=== PATIENT | male | born 1945 | race Native Hawaiian/Other Pacific Islander ===

== ENCOUNTER 2016-06-14 06:25 | Day surgery (SDC) | payer MEDICARE, MEDICAID ==
[2016-05-20 13:49] VITALS: BMI 21.0
--- NOTE | 2016-06-11 15:43 | HP ---
REASON FOR ADMISSION: Left heart catheterization, possible angioplasty, abnormal stress test. BRIEF CLINICAL HISTORY: This is a 70-year-old male with a past medical history of hypertension, hype rlipidemia, active tobacco abuse, having chest pain. The patient underwent a stress test that shows abnormal stress test, so patient is scheduled for elective cardiac cath, possible angioplasty. PAST MEDICAL HISTORY: Significant for hypertension, hyperlipidemia. SOCIAL HISTORY: Active smoker. PREVIOUS CARDIAC WORKUP: The patient had a stress test 05/20/2016 that shows abnormal SPECT myocardia l perfusion study, inferior defect suspicious for ischemia, ejection fraction 72%. The patient had e chocardiography on 03/28/2016 that shows no PE, no vegetation, no thrombus, LV ejection fraction 55%, mild aortic regurgitation, mild mitral regurgitation, mild tricuspid regurgitation, trace pulmonary i nsufficiency, RV systolic pressure 37, ejection fraction reported 55%. REVIEW OF SYSTEMS: As per HPI. CURRENT MEDICATIONS: The patient is taking hydrochlorothiazide 12.5 mg daily, thiamine, B1 100 mg da arik, cyanocobalamin 2000 mg daily, atorvastatin 10 mg daily. ALLERGIES: No known drug allergy. REVIEW OF SYSTEMS: As per HPI. PHYSICAL EXAMINATION: VITAL SIGNS: Height of the patient is 5 feet 2 inches, weight of the patient 115 pounds, body mass i ndex 21 kg/meters squared, heart rate 70, blood pressure 130/80. HEENT: PERRLA. Extraocular muscles intact. NECK: Supple. No carotid bruits. No thyromegaly. CHEST: Clear to auscultation. HEART: S1, S2 regular. ABDOMEN: Soft. EXTREMITIES: Clubbing, cyanosis negative. BLOOD WORKUP: Pending. IMPRESSION: Abnormal stress test, hypertension, hyperlipidemia, mild mitral regurgitation, mild tric uspid regurgitation, preserved left ventricular function, abnormal stress test, inferolateral defect suspicious for ischemia, ejection fraction 55% by echo, by stress test 72%, mild mitral regurgitation , mild tricuspid regurgitation, coronary artery disease. RECOMMENDATION: We will do the cardiac catheterization. Further recommendation after the cardiac ca theterization. Risks, benefits, alternatives discussed with the patient. The patient agreed. We wi ll proceed for cardiac catheterization. We will give 300 mg of Plavix and 325 mg of aspirin. Furthe r recommendation after the cardiac catheterization. Thank you, Dr. Pena, for providing us the opportunity in taking care of the patient. We will follo w with you. Fawn Goodman MD cc: [id number] TT: 06/11/2016 15:42:44 en
[2016-06-14 06:55] LABS: ADD MANUAL DIFF? NO
[2016-06-14 07:12] LABS: BASO # 0.03 [, K/mm3] (0.0-2.0); BASO % 0.6 % (0.0-3.0); BLOOD UREA NITROGEN 14 mg/dL (7-21); CALCIUM 9.6 mg/dL (8.4-10.5); CARBON DIOXIDE 28 mmol/L (21-33); CHLORIDE 101 mmol/L (98-107); CHOLESTEROL 209 mg/dL (130-200); EOS # 0.2 (0.0-0.7); GFR AFRICAN-AMERICAN > 60; GLUCOSE,RANDOM 107 mg/dL (70-110); GRAN # 2.92 (1.4-6.5); GRAN % 57.6 % (50.0-68.0); HEMATOCRIT 44.1 % (42.0-52.0); INR 0.99 (0.93-1.08); LYMPH # 1.5 (1.2-3.4); LYMPH % 28.9 % (22.0-35.0); MEAN CELL VOLUME 94.2 fL (80.0-105.0); MEAN CORPUSCULAR HEMOGLOBIN 31.2 pg (25.0-35.0); MEAN CORPUSCULAR HGB CONC 33.1 g/dl (31.0-37.0); MEAN PLATELET VOLUME 9.9 fl (7.0-11.0); MONO # 0.5 (0.1-0.6); MONO % 8.9 % (1.0-6.0); PLATELET COUNT 231 [, 10^3/uL] (120.0-450.0); POTASSIUM 4.9 mmol/L (3.6-5.0); SODIUM 141 mmol/L (132-148); WHITE BLOOD COUNT 5.1 [, 10^3/ul] (4.5-11.0)
[2016-06-14] MEDS ORDERED: Lidocaine 2% Inj (20ml) ONE (09:03)
[2016-06-14] MEDS ORDERED: Midazolam 2 MG/2 ML VIAL ONE (09:04)
[2016-06-14] MEDS ORDERED: Iohexol 350mgl/ml 50 ML ONE (09:04)
[2016-06-14] MEDS ORDERED: Iodixanol 320 MG/ML 200 ML BOTTLE IV ONE (09:04)
[2016-06-14] MEDS ORDERED: Nitroglycerin 50mg in D5W 250 ML IV ONE (09:04)
[2016-06-14] MEDS ORDERED: Bacitracin 500 Units/gm Oint Foilpak UD TOP ONE (10:19)
[2016-06-14] MEDS ORDERED: Sodium Chloride 0.9% 1,000 ML IV SCH (10:30)
[2016-06-14] MEDS ORDERED: Bacitracin 500 Units/gm Oint Foilpak UD ONE (12:04)
--- NOTE | 2016-06-14 18:00 | CARD ---
APPROVED REPORT Procedure(s) performed: Left Heart Catheterization HISTORY The patient is a 70 year-old male with a history of : hypertension , dyslipidemia . INDICATION The indication(s) include : positive stress test. CASE TECHNIQUE The patient was brought electively to the Cardiac Catheterization Laboratory in a fasting state and was prepped and draped in a sterile manner. The left wrist was infiltrated with 2% Lidocaine subcutaneous anesthesia. A 6 Fr Glidesheath (Radial) sheath was inserted into the left radial artery without difficulty. Coronary angiography was performed using coronary diagnostic catheters. The left coronary system was accessed and visualized with a Diagnostic ,JL3.5,5FR catheter. The right coronary system was accessed and visualized with a Diagnostic ,Jr4.0,5FR catheter. The left ventricle was accessed and visualized with a Pig tail catheter. Left ventricular/Aortic Valve gradient assessed on pullback. Left ventriculogram was performed in TRENT projection. The patient tolerated the procedure well and there were no complications associated with the procedure. Vessel Analysis The patient's coronary anatomy is left dominant. The left main coronary artery is a medium size vessel with diffuse calcification noted throughout this vessel and without significant stenosis. There is a 20-30% stenosis in the proximal segment. The left main bifurcates to the left anterior descending and circumflex. The left anterior descending artery is a medium size vessel with diffuse calcification noted throughout this vessel and without significant stenosis. There is a 40% stenosis in the proximal segment. The first diagonal branch is a medium size vessel with diffuse calcification noted throughout this vessel and without significant stenosis. There is a 60% stenosis in the ostial segment. The circumflex artery is a large size vessel with diffuse calcification noted throughout this vessel and without significant stenosis. The first obtuse marginal branch is a medium size vessel with diffuse calcification noted throughout this vessel and without significant stenosis. The second obtuse marginal branch is a small size vessel with diffuse calcification noted throughout this vessel and without significant stenosis. There is a 55% stenosis in the proximal segment. The third obtuse marginal branch is a medium size vessel with diffuse calcification noted throughout this vessel and without significant stenosis. The left posterior descending artery is a medium size vessel with diffuse calcification noted throughout this vessel and without significant stenosis. The right coronary artery is a medium size vessel with diffuse calcification noted throughout this vessel and without significant stenosis. Non dominant Left Ventricle The left ventricle is normal in size with normal contractility. There was no cardiomyopathy. The left ventricular ejection fraction is estimated to be 65%. The left ventricular end diastolic pressure is 14 mmHg. There was no gradient across the aortic valve upon pullback. Conclusion Non- obstructive CAD, limited to D1 60%, and OM2 55% Preserved LV FX, EF-65%, EDP_[id number]. Recommendations Aggressive Medical TherapyCardiac Risk Reduction Program CC; Drs. Pena/ Michael.
== END 2016-06-14 14:05 | disposition home or self-care (01) ==
LOC: CATH 06:25
PROVIDERS: ATTEND Internal Medicine Cardiovascular Disease
DX: I25.10 Atherosclerotic heart disease of native coronary artery without angina pectoris (principal); E78.5 Hyperlipidemia, unspecified; I10 Essential (primary) hypertension; R94.39 Abnormal result of other cardiovascular function study; I08.1 Rheumatic disorders of both mitral and tricuspid valves; Z82.49 Family history of ischemic heart disease and other diseases of the circulatory system
CPT/HCPCS: 36415; 80048; 80061; 85025; 85610; 85730; 86850; 86900; 93458; 99152; C1887 ×2; J1644 ×2; J2250; J3010; J7040 ×2; Q9967